=== PATIENT | male | born 1975 | race Caucasian/White ===

== ENCOUNTER 2020-05-10 13:36 | Inpatient (IN) ==
[2020-05-10] MEDS ORDERED: ONDANSETRON INJ 2 MG/ML 2 ML VIAL IV STA (14:16)
[2020-05-10] MEDS ORDERED: MoRPHine SULFATE 4 MG/ML 1 ML CARP\\VIAL IV STA (14:16)
--- NOTE | 2020-05-10 14:21 | Emergency Department Note ---
History of Present Illness General Chief complaint: Abdominal Pain Stated complaint: ABD PAIN SINCE LAST NIGHT Time Seen by Provider: 05/10/20 14:03 History of Present Illness Maximum Pain Intensity: 8 This is a 45-year-old male that presents to the emergency department via private vehicle with complaint of pain since last night". The patient notes that around 10 PM he began with bad cramping in the right lower quadrant region. He notes that he was eventually able to fall asleep and awoke today with persistence of symptoms. He denies any relief. He tried Motrin without relief. He denies any known trauma, injury, fevers, nausea, vomiting or blood in the stool. He does have associated chills. He denies any pertinent past medical history, surgeries or allergies. No history of abdominal surgeries. Current discomfort 11/23. 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 Beliefs That Will Affect Care: None Current Living Situation: Spouse and Family Other Information That Helps Us Care for You: No Feels Safe at Home: Yes Safety Concerns: Feels Safe At This Time Assistive Devices: Glasses Assistive Devices Comment: glasses not here Review of Systems A total of 10 systems reviewed and were otherwise negative Physical Exam Vital Signs Vital Signs - 24 hr 05/10/20 13:56 05/10/20 14:16 05/10/20 14:18 Temperature 37.2 C Temperature Source Oral Pulse Rate 114 H 103 H 101 H Pulse Rate [Right Finger] Pulse Rate from SpO2 Sensor Respiratory Rate 18 18 22 Respiratory Effort / Characteristics Respiratory Depth Respiratory Pattern Blood Pressure 159/87 H 146/99 H Blood Pressure [Left Arm] Blood Pressure Mean 111 114 Blood Pressure Mean [Left Arm] Blood Pressure Position [Left Arm] Pulse Oximetry 95 Oxygen Delivery Method Room Air Sepsis Recent Fever Within 48 Hours No Sepsis New/Unexplained Change in Mental Status No Sepsis Action Taken by Nursing No Action Required 05/10/20 14:30 05/10/20 14:31 05/10/20 15:00 Temperature Temperature Source Pulse Rate 95 H 94 H 96 H Pulse Rate [Right Finger] Pulse Rate from SpO2 Sensor Respiratory Rate 18 21 22 Respiratory Effort / Characteristics Respiratory Depth Respiratory Pattern Blood Pressure 125/86 Blood Pressure [Left Arm] Blood Pressure Mean 99 Blood Pressure Mean [Left Arm] Blood Pressure Position [Left Arm] Pulse Oximetry Oxygen Delivery Method Sepsis Recent Fever Within 48 Hours Sepsis New/Unexplained Change in Mental Status Sepsis Action Taken by Nursing 05/10/20 15:19 05/10/20 15:20 05/10/20 15:30 Temperature Temperature Source Pulse Rate 96 H 97 H 91 H Pulse Rate [Right Finger] Pulse Rate from SpO2 Sensor 96 H 95 H 91 H Respiratory Rate 20 23 20 Respiratory Effort / Characteristics Respiratory Depth Respiratory Pattern Blood Pressure 133/86 130/86 Blood Pressure [Left Arm] Blood Pressure Mean 101 100 Blood Pressure Mean [Left Arm] Blood Pressure Position [Left Arm] Pulse Oximetry 99 98 95 Oxygen Delivery Method Sepsis Recent Fever Within 48 Hours Sepsis New/Unexplained Change in Mental Status Sepsis Action Taken by Nursing 05/10/20 15:31 05/10/20 16:00 05/10/20 16:01 Temperature Temperature Source Pulse Rate 93 H 98 H 96 H Pulse Rate [Right Finger] Pulse Rate from SpO2 Sensor 93 H 97 H 96 H Respiratory Rate 21 19 22 Respiratory Effort / Characteristics Respiratory Depth Respiratory Pattern Blood Pressure 129/84 Blood Pressure [Left Arm] Blood Pressure Mean 99 Blood Pressure Mean [Left Arm] Blood Pressure Position [Left Arm] Pulse Oximetry 96 94 94 Oxygen Delivery Method Sepsis Recent Fever Within 48 Hours Sepsis New/Unexplained Change in Mental Status Sepsis Action Taken by Nursing 05/10/20 16:30 05/10/20 16:31 05/10/20 17:00 Temperature Temperature Source Pulse Rate 97 H 95 H 95 H Pulse Rate [Right Finger] Pulse Rate from SpO2 Sensor 97 H 95 H Respiratory Rate 22 20 16 Respiratory Effort / Characteristics Respiratory Depth Respiratory Pattern Blood Pressure 134/90 120/77 Blood Pressure [Left Arm] Blood Pressure Mean 104 91 Blood Pressure Mean [Left Arm] Blood Pressure Position [Left Arm] Pulse Oximetry 95 95 Oxygen Delivery Method Sepsis Recent Fever Within 48 Hours Sepsis New/Unexplained Change in Mental Status Sepsis Action Taken by Nursing 05/10/20 17:01 05/10/20 17:20 Temperature 37.8 C H Temperature Source Oral Pulse Rate 89 Pulse Rate [Right Finger] 95 H Pulse Rate from SpO2 Sensor Respiratory Rate 21 95 H Respiratory Effort / Characteristics Non-Labored Spontaneous Respiratory Depth Normal Respiratory Pattern Regular Blood Pressure Blood Pressure [Left Arm] 116/82 Blood Pressure Mean Blood Pressure Mean [Left Arm] 93 Blood Pressure Position [Left Arm] Sitting Pulse Oximetry 92 Oxygen Delivery Method Room Air Sepsis Recent Fever Within 48 Hours Sepsis New/Unexplained Change in Mental Status Sepsis Action Taken by Nursing VITAL SIGNS - Vital signs and nursing notes were reviewed. Stable and afebrile. GENERAL -45-year-old male appearing his stated age who is in no acute distress. Communicates well with provider and answers questions appropriately. SKIN - Without rashes. No meningeal or petechial rash. HEAD - NC/AT. EYES - PERRL with EOMI bilaterally. Sclera anicteric. EARS - No deformities of external structures noted on gross examination bilaterally. NOSE - Midline and without cyanosis. No epistaxis or purulent drainage noted. MOUTH/OROPHARYNX - Without perioral cyanosis. Buccal mucosa pink and moist and without leukoplakia. Tongue midline with equal elevation of palate bilaterally. No tonsillar hypertrophy, erythema, or exudates noted. Good dentition noted. NECK - Neck with FROM. Supple to palpation. No lymphadenopathy noted. No nuchal rigidity. LUNGS - Chest wall symmetric without accessory muscle use, intercostals retractions, or central cyanosis. Normal vesicular breath sounds CTA B/L. No wh eezes, rales, or rhonchi appreciated. CARDIAC - RRR with S1/S2. No murmur, rubs, or gallops appreciated. ABDOMEN - Abdominal contour normal without pulsations or visible masses. BS normoactive all four quadrants. The patient's abdomen is tender in the right lower quadrant with some mild rebound tenderness. Abdomen is somewhat rigid. No palpable masses, hepatosplenomegaly, or ascites noted. EXTREMITIES - No clubbing or peripheral cyanosis. No pretibial edema present. +5/5 strength noted in UE/LE bilaterally. NEUROLOGIC - Cranial nerves II through XII grossly intact. Sensory intact to light touch throughout. PSYCH - A&O, and cooperates fully with examiner. Pt is very pleasant and interac ts well with examiner. Course Administered Medications Lactated Ringer's (Lr) 1,000 mls @ 80 mls/hr IV .[id number] FANNIE Stop: 06/09/20 21:31 Last Infusion: 05/11/20 04:44 Dose: 80 mls/hr Documented by: [id number] Infusion: 05/11/20 04:00 Dose: 0 mls/hr Documented by: [id number] Admin: 05/11/20 04:00 Dose: 80 mls/hr Documented by: [id number] Infusion: 05/11/20 04:00 Dose: 80 mls/hr Documented by: [id number] Infusion: 05/10/20 22:42 Dose: 80 mls/hr Documented by: [id number] Infusion: 05/10/20 22:10 Dose: 0 mls/hr Documented by: [id number] Admin: 05/10/20 21:30 Dose: 80 mls/hr Documented by: [id number] Piperacillin Sod/Tazobactam (Sod 3.375 gm/ Dextrose) 115 mls @ 28.75 mls/hr IV Q8H FANNIE; Protocol Stop: 05/21/20 02:59 Last Admin: 05/11/20 03:56 Dose: 28.8 mls/hr Documented by: [id number] Oxycodone/Acetaminophen (Oxycodone/Acetaminophen 5mg/325mg Tab) 1 tab PO Q4H PRN PRN Reason: Pain Stop: 05/24/20 21:31 Last Admin: 05/11/20 01:11 Dose: 1 tab Documented by: [id number] Discontinued Medications Bacitracin (Bacitracin Oint 15 Gm Tube) Confirm Administered Dose 45 appln .ROUTE .STK-MED ONE Stop: 05/10/20 17:25 Last Admin: 05/10/20 18:01 Dose: 45 appln Documented by: [id number] Bupivacaine HCl (Bupivacaine 0.5 % 5 Mg/1 Ml Mpf 30ml Vial) Confirm Administered Dose 30 ml .ROUTE .STK-MED ONE Stop: 05/10/20 17:25 Last Admin: 05/10/20 18:02 Dose: 20 ml Documented by: [id number] Sodium Chloride (Nss 1000ml) 1,000 mls @ 999 mls/hr IV .Q1H1M FANNIE Stop: 05/10/20 15:30 Last Infusion: 05/10/20 15:15 Dose: 0 mls/hr Documented by: [id number] Admin: 05/10/20 14:22 Dose: 999 mls/hr Documented by: [id number] Cefoxitin Sodium (Mefoxin) 2,000 mg in 60 mls @ 100 mls/hr IV NOW ONE Stop: 05/10/20 17:50 Last Infusion: 05/10/20 21:30 Dose: 0 mls/hr Documented by: [id number] Admin: 05/10/20 17:34 Dose: 100 mls/hr Documented by: [id number] Piperacillin Sod/Tazobactam (Sod 3.375 gm/ Dextrose) 115 mls @ 230 mls/hr IV NOW ONE; Protocol Stop: 05/10/20 22:44 Last Infusion: 05/10/20 22:41 Dose: 0 mls/hr Documented by: [id number] Admin: 05/10/20 22:09 Dose: 230 mls/hr Documented by: [id number] Ioversol (Ioversol 100ml) 91 ml IV ONCE ONE Stop: 05/10/20 15:11 Last Admin: 05/10/20 15:11 Dose: 91 ml Documented by: [id number] Lidocaine HCl (Lidocaine Hcl 1% 20 Ml Vial) Confirm Administered Dose 20 ml .ROUTE .STK-MED ONE Stop: 05/10/20 17:25 Last Admin: 05/10/20 18:02 Dose: 20 ml Documented by: [id number] Morphine Sulfate (Morphine Sulfate 4 Mg/Ml 1 Ml Carp\\Vial) 4 mg IV NOW STA Stop: 05/10/20 14:17 Last Admin: 05/10/20 14:22 Dose: 4 mg Documented by: [id number] Ondansetron HCl (Ondansetron Inj 2 Mg/Ml 2 Ml Vial) 4 mg IV NOW STA Stop: 05/10/20 14:17 Last Admin: 05/10/20 14:22 Dose: 4 mg Documented by: [id number] Medical Decision Making Laboratory Data Result diagrams: 05/11/20 04:35 05/11/20 04:35 Lab Results 05/10/20 05/10/20 05/10/20 Range/Units 14:12 14:12 14:15 WBC 17.01 H (4.8-10.8) K/uL RBC 5.29 (4.7-6.1) M/uL Hgb 15.9 (14.0-18.0) g/dL Hct 44.6 (42-52) % MCV 84.3 (80-100) fL MCH 30.1 (25-34) pg MCHC 35.7 (32-36) g/dL RDW Std Deviation 39.6 (36.4-46.3) fL RDW Coeff of Ashlee 12.9 (11.5-14.5) % Plt Count 291 (130-400) K/uL MPV 9.6 (7.4-10.4) fL Immature Gran % (Auto) 0.4 % Neut % (Auto) 78.5 % Lymph % (Auto) 14.6 % [place] % (Auto) 6.2 % Eos % (Auto) 0.2 % Baso % (Auto) 0.1 % Neut # (Auto) 13.35 H (1.4-6.5) K/uL Lymph # (Auto) 2.49 (1.2-3.4) K/uL [place] # (Auto) 1.06 H (0.11-0.59) K/uL Eos # (Auto) 0.03 (0-0.5) K/uL Baso # (Auto) 0.02 (0-0.2) K/uL Immature Gran # (Auto) 0.06 H (0.00-0.02) K/uL Sodium 136 (136-145) mmol/L Potassium 3.6 (3.5-5.1) mmol/L Chloride 102 (98-107) mmol/L Carbon Dioxide 29 (21-32) mmol/L Anion Gap 5.0 (3-11) BUN 13 (7-18) mg/dl Creatinine 1.04 (0.6-1.4) mg/dl Est Cr Clr Drug Dosing 115.0 ml/min Est GFR ( Amer) 99.3 Est GFR (Non-Af Amer) 85.7 BUN/Creatinine Ratio 12.2 (10-20) Glucose 97 (70-99) mg/dl Calcium 9.6 (8.5-10.1) mg/dl Total Bilirubin 1.7 H (0.2-1) mg/dl AST 11 L (15-37) U/L ALT 39 (12-78) U/L Alkaline Phosphatase 85 (45-117) U/L Total Protein 8.2 (6.4-8.2) gm/dl Albumin 3.9 (3.4-5.0) gm/dl Globulin 4.3 H (2.5-4.0) gm/dl Albumin/Globulin Ratio 0.9 (0.9-2) Lipase 84 (73-393) U/L Urine Color Yellow Urine Appearance Clear (Clear) Urine pH 6.5 (4.5-7.5) Ur Specific [place] 1.013 (1.000-1.030) Urine Protein Negative (Negative) Urine Glucose (UA) Negative (Negative) Urine Ketones Negative (Negative) Urine Blood Negative (Negative) Urine Nitrite Negative (Negative) Urine Bilirubin Negative (Negative) Urine Urobilinogen Negative (Negative) Ur Leukocyte Esterase Trace H (Negative) Urine WBC (Auto) 0 (0-5) /hpf Urine RBC (Auto) 0-4 (0-4) /hpf U Hyaline Cast (Auto) 1-5 (0-5) /lpf U Epithel Cells (Auto) 0-5 (0-5) /lpf Urine Bacteria (Auto) Negative (Negative) COVID-19 Eval Order SARS-CoV-2, RNA, NAAT (NEGATIVE) 05/10/20 05/10/20 Range/Units 16:26 16:26 WBC (4.8-10.8) K/uL RBC (4.7-6.1) M/uL Hgb (14.0-18.0) g/dL Hct (42-52) % MCV (80-100) fL MCH (25-34) pg MCHC (32-36) g/dL RDW Std Deviation (36.4-46.3) fL RDW Coeff of Ashlee (11.5-14.5) % Plt Count (130-400) K/uL MPV (7.4-10.4) fL Immature Gran % (Auto) % Neut % (Auto) % Lymph % (Auto) % [place] % (Auto) % Eos % (Auto) % Baso % (Auto) % Neut # (Auto) (1.4-6.5) K/uL Lymph # (Auto) (1.2-3.4) K/uL [place] # (Auto) (0.11-0.59) K/uL Eos # (Auto) (0-0.5) K/uL Baso # (Auto) (0-0.2) K/uL Immature Gran # (Auto) (0.00-0.02) K/uL Sodium (136-145) mmol/L Potassium (3.5-5.1) mmol/L Chloride (98-107) mmol/L Carbon Dioxide (21-32) mmol/L Anion Gap (3-11) BUN (7-18) mg/dl Creatinine (0.6-1.4) mg/dl Est Cr Clr Drug Dosing ml/min Est GFR ( Amer) Est GFR (Non-Af Amer) BUN/Creatinine Ratio (10-20) Glucose (70-99) mg/dl Calcium (8.5-10.1) mg/dl Total Bilirubin (0.2-1) mg/dl AST (15-37) U/L ALT (12-78) U/L Alkaline Phosphatase (45-117) U/L Total Protein (6.4-8.2) gm/dl Albumin (3.4-5.0) gm/dl Globulin (2.5-4.0) gm/dl Albumin/Globulin Ratio (0.9-2) Lipase (73-393) U/L Urine Color Urine Appearance (Clear) Urine pH (4.5-7.5) Ur Specific [place] (1.000-1.030) Urine Protein (Negative) Urine Glucose (UA) (Negative) Urine Ketones (Negative) Urine Blood (Negative) Urine Nitrite (Negative) Urine Bilirubin (Negative) Urine Urobilinogen (Negative) Ur Leukocyte Esterase (Negative) Urine WBC (Auto) (0-5) /hpf Urine RBC (Auto) (0-4) /hpf U Hyaline Cast (Auto) (0-5) /lpf U Epithel Cells (Auto) (0-5) /lpf Urine Bacteria (Auto) (Negative) COVID-19 Eval Order Covid19 IDNow [facility] SARS-CoV-2, RNA, NAAT NEGATIVE (NEGATIVE) Imaging Data Radiologist's Impression: CT OF THE ABDOMEN AND PELVIS WITH CONTRAST CLINICAL HISTORY: Right lower quadrant abdominal pain. COMPARISON STUDY: None. TECHNIQUE: Following IV administration of 91 mL of Optiray-320, axial images of the abdomen and pelvis were obtained from the lung bases to the proximal femurs. Images were reviewed in the axial, sagittal, and coronal planes. IV contrast was administered without complication. Automated exposure control was utilized for the study. A dose lowering technique was utilized adhering to the principles of ALARA. CT DOSE: 1105.59 mGy.cm FINDINGS: Note is made of a few small nodules within the lower lungs which measure up to 3 mm. These are likely benign. No pneumatosis, free air or portal venous gas is present. The liver, spleen, adrenal glands, kidneys and pancreas are normal. There is no biliary or pancreatic ductal dilatation. There is no evidence for a bowel obstruction. The base of the appendix is dilated, measuring 1.1 cm in caliber. The tip of the appendix is normal caliber. There is moderate infiltration centered on the base of the cecum and the appendix. There is mild wall thickening of the cecum and the terminal ileum. No free air or abscess is present. A few prominent ileocolic lymph nodes are likely reactive. Major vasculature is patent. IMPRESSION: Mild dilatation of the base of the appendix with infiltration adjacent to the appendix, cecum and terminal ileum with mild wall thickening of the terminal ileum and cecum. Acute appendicitis is the diagnosis of exclusion. A nonspecific ileocecitis could appear similar although is considered less likely. No free air or abscess. ACT 112: Negative or not required by law. Electronically signed by: Tio Cummings M.D. 05/10/2020 3:36 PM MDM Narrative Patient was seen and evaluated as above in room B3. Review was performed of nursing notes and vital signs. After obtaining a thorough history and physical examination the above work up was performed. Patient presents to us today with right lower quadrant abdominal pain since last night. His examination is concerning for that of potential surgical process. IV access established. Labs were drawn. He was medicated with IV morphine, fluids, Zofran. He is reevaluated with improvement. CT scan was obtained. Results as above. Acute appendicitis suggested and is my concern clinically. Case then discussed with general surgery. They came to evaluate the patient. He will be taken to the operative suite. Please refer to further documentation regarding his stay. While in the department, I personally reevaluated the patient and he was found to be resting comfortably. GCS: 15 In the evaluation and treatment of this patient the following differential diagnoses were entertained: Perforation, abscess, peritonitis, acute appendicitis, diverticulitis, torsion, renal calculi, among others. Impression & Plan Acute appendicitis, Acute abdominal pain in right lower quadrant Discharge Plan Visit Data Chief Complaint: Abdominal Pain Stated Complaint: ABD PAIN SINCE LAST NIGHT ED Provider: Yonny Agustin ED Midlevel Provider: Jacinto Cooley Discharge Problem: Acute appendicitis, Acute abdominal pain in right lower quadrant Patient Disposition: Being Evaluated by Surgeon Discharge Instructions Interventions: ED Discharge Assessment Last Done: 05/10/20 17:14
[2020-05-10 14:28] LABS: Basophils # (auto) 0.02 K/uL (0-0.2); Basophils % (auto) 0.1 %; Eosinophils # (auto) 0.03 K/uL (0-0.5); Eosinophils % (auto) 0.2 %; Hematocrit (blood only) 44.6 % (42-52); Hemoglobin 15.9 g/dL (14.0-18.0); Immature Granulocytes # (auto) 0.06 K/uL (0.00-0.02); Immature Granulocytes % (auto) 0.4 %; Lymphocytes # (auto) 2.49 K/uL (1.2-3.4); Lymphocytes % (auto) 14.6 %; Mean Corpuscular Hemoglobin 30.1 pg (25-34); Mean Corpuscular Hgb Conc 35.7 g/dL (32-36); Mean Corpuscular Volume 84.3 fL (80-100); Mean Platelet Volume 9.6 fL (7.4-10.4); Monocytes # (auto) 1.06 K/uL (0.11-0.59); Monocytes % (auto) 6.2 %; Neutrophils # (auto) 13.35 K/uL (1.4-6.5); Neutrophils % (auto) 78.5 %; Platelet Count 291 K/uL (130-400); RDW Coefficient of Variation 12.9 % (11.5-14.5); RDW Standard Deviation 39.6 fL (36.4-46.3); Red Blood Count 5.29 M/uL (4.7-6.1); White Blood Count 17.01 K/uL (4.8-10.8)
[2020-05-10] MEDS ORDERED: SODIUM CHLORIDE 0.9% 1000ML 1,000 ML IV SCH (14:30)
[2020-05-10 14:51] LABS: Albumin Level 3.9 gm/dl (3.4-5.0); BUN Creatinine Ratio 12.2 (10-20); Calcium 9.6 mg/dl (8.5-10.1); Est GFR (African American) 99.3; Est GFR (Non-African American) 85.7; Potassium 3.6 mmol/L (3.5-5.1)
[2020-05-10 14:54] LABS: Albumin Globulin Ratio 0.9 (0.9-2); Bilirubin,Total 1.7 mg/dl (0.2-1); Globulin 4.3 gm/dl (2.5-4.0); Total Protein 8.2 gm/dl (6.4-8.2)
[2020-05-10 14:54] LABS: Appearance Urine Clear (Clear); Bacteria Urine Automated Negative (Negative); Bilirubin Urine Negative (Negative); Blood Urine Negative (Negative); Color Urine Yellow; Epithelial Cell Urine Auto 0-5 /lpf (0-5); Glucose Urine UA Negative (Negative); Ketones Urine Negative (Negative); Leukocyte Esterase Urine Trace (Negative); Nitrite Urine Negative (Negative); Protein Urine Negative (Negative); RBC Urine Automated 0-4 /hpf (0-4); Specific Gravity Urine 1.013 (1.000-1.030); Urobilinogen Urine Negative (Negative); WBC Urine Automated 0 /hpf (0-5); pH Urine 6.5 (4.5-7.5)
[2020-05-10] MEDS ORDERED: IOVERSOL 100ml IV ONE (15:10)
--- NOTE | 2020-05-10 15:38 | CT Scan Report ---
CT OF THE ABDOMEN AND PELVIS WITH CONTRAST CLINICAL HISTORY: Right lower quadrant abdominal pain. COMPARISON STUDY: None. TECHNIQUE: Following IV administration of 91 mL of Optiray-320, axial images of the abdomen and pelvi s were obtained from the lung bases to the proximal femurs. Images were reviewed in the axial, sagitt al, and coronal planes. IV contrast was administered without complication. Automated exposure contro l was utilized for the study. A dose lowering technique was utilized adhering to the principles of A SNOW. CT DOSE: 1105.59 mGy.cm FINDINGS: Note is made of a few small nodules within the lower lungs which measure up to 3 mm. These are likely benign. No pneumatosis, free air or portal venous gas is present. The liver, spleen, adren al glands, kidneys and pancreas are normal. There is no biliary or pancreatic ductal dilatation. Ther e is no evidence for a bowel obstruction. The base of the appendix is dilated, measuring 1.1 cm in ca liber. The tip of the appendix is normal caliber. There is moderate infiltration centered on the base of the cecum and the appendix. There is mild wall thickening of the cecum and the terminal ileum. No free air or abscess is present. A few prominent ileocolic lymph nodes are likely reactive. Major vas culature is patent. IMPRESSION: Mild dilatation of the base of the appendix with infiltration adjacent to the appendix, cecum and terminal ileum with mild wall thickening of the terminal ileum and cecum. Acute appendiciti s is the diagnosis of exclusion. A nonspecific ileocecitis could appear similar although is considere d less likely. No free air or abscess. ACT 112: Negative or not required by law. Electronically signed by: Tio Cummings M.D. 05/10/2020 3:36 PM
--- NOTE | 2020-05-10 16:50 | Surgery Consultation ---
Date of Consultation May 10, 2020 Assessment & Plan (1) Acute abdominal pain in right lower quadrant: (2) Acute appendicitis: pt is a 45 year-old male who presents to ER with one day history RLQ pain, IMP: acute abdominal pain,acute appendicitis, could not R/O ileitis Plan, I recommend to do laparoscopic appendectomy, possible open, D/W benefits, risks and alternatives of the surgery, the risks - infection, bleeding, abscess, injury bowel, pt understood, he agrees with the surgery, I answered all questions, COVID test, pre-op antibiotic Present on Admission?: Yes History of Present Illness History of Present Illness CC: RLQ pain HPI: pt is a 45 year-old male who presents to ER with one day history RLQ pain with nausea, no vomiting, the pain is 6/10, located at RLQ, pt denies fever, no diarrhea, no past abdominal pain history, pt had CT scan today- diagnosis- acute appendicitis, I got a call for consult acute appendicitis. Allergies Allergy/AdvReac Type Severity Reaction Status Date / Time No Known Allergies Allergy Unverified 05/10/20 16:48 Patient History Social History Smoking Status: Never smoker Review of Systems Review of Systems: All systems reviewed & are unremarkable except as noted in HPI & below Constitutional: as per Subjective / HPI Eyes: as per Subjective / HPI Ear, Nose, Mouth, Throat: as per Subjective / HPI Respiratory: as per Subjective / HPI Cardiovascular: as per Subjective / HPI Gastrointestinal: as per Subjective / HPI Genitourinary: + as per Subjective / HPI Musculoskeletal: as per Subjective / HPI Integumentary: as per Subjective / HPI Neurologic: as per Subjective / HPI Psychiatric: as per Subjective / HPI Endocrine: as per Subjective / HPI Hematologic / Lymphatic: as per Subjective / HPI Allergy / Immunological: as per Subjective / HPI Physical Exam Constitutional: WD/WN, vitals as above well developed and well nourished Eyes: PERRL, conjunctivae normal, anicteric sclerae ENMT: external ear and nose normal, oropharynx normal Neck: trachea midline, no thyromegaly Respiratory: normal respiratory effort, lungs clear to auscultation Cardiovascular: RRR, no murmur, no edema Rate/Rhythm: regular rate and regular rhythm Gastrointestinal (Abdomen): Percussion/Palpation: + abdomen tender and abdomen soft tenderness at RLQ, no rebound pain, no distend, BS + Musculoskeletal: no cyanosis or clubbing, extremities motor strength 5/5 Skin: no rashes, warm and dry Neurologic: awake Psychiatric: Orientation: alert and oriented x 3 Results & Data ([facility]) Vital Signs (Past 12 Hours) Vital Signs Temp Pulse Resp BP Pulse Ox 05/10/20 16:31 95 H 20 95 05/10/20 16:30 97 H 22 134/90 95 05/10/20 16:01 96 H 22 94 05/10/20 16:00 98 H 19 129/84 94 05/10/20 15:31 93 H 21 96 05/10/20 15:30 91 H 20 130/86 95 05/10/20 15:20 97 H 23 98 05/10/20 15:19 96 H 20 133/86 99 05/10/20 15:00 96 H 22 05/10/20 14:31 94 H 21 05/10/20 14:30 95 H 18 125/86 05/10/20 14:18 101 H 05/10/20 14:16 103 H 18 146/99 H 05/10/20 13:56 37.2 C 114 H 18 159/87 H 95 Laboratory Results Abnormal lab results 05/10/20 05/10/20 05/10/20 Range/Units 14:12 14:12 14:15 WBC 17.01 H (4.8-10.8) K/uL Neut # (Auto) 13.35 H (1.4-6.5) K/uL [place] # (Auto) 1.06 H (0.11-0.59) K/uL Immature Gran # (Auto) 0.06 H (0.00-0.02) K/uL Total Bilirubin 1.7 H (0.2-1) mg/dl AST 11 L (15-37) U/L Globulin 4.3 H (2.5-4.0) gm/dl Ur Leukocyte Esterase Trace H (Negative) Diagnostic Findings CT OF THE ABDOMEN AND PELVIS WITH CONTRAST CLINICAL HISTORY: Right lower quadrant abdominal pain. COMPARISON STUDY: None. TECHNIQUE: Following IV administration of 91 mL of Optiray-320, axial images of the abdomen and pelvis were obtained from the lung bases to the proximal femurs. Images were reviewed in the axial, sagittal, and coronal planes. IV contrast was administered without complication. Automated exposure control was utilized for the study. A dose lowering technique was utilized adhering to the principles of ALARA. CT DOSE: 1105.59 mGy.cm FINDINGS: Note is made of a few small nodules within the lower lungs which measure up to 3 mm. These are likely benign. No pneumatosis, free air or portal venous gas is present. The liver, spleen, adrenal glands, kidneys and pancreas are normal. There is no biliary or pancreatic ductal dilatation. There is no evidence for a bowel obstruction. The base of the appendix is dilated, measuring 1.1 cm in caliber. The tip of the appendix is normal caliber. There is moderate infiltration centered on the base of the cecum and the appendix. There is mild wall thickening of the cecum and the terminal ileum. No free air or abscess is present. A few prominent ileocolic lymph nodes are likely reactive. Major vasculature is patent. IMPRESSION: Mild dilatation of the base of the appendix with infiltration adjacent to the appendix, cecum and terminal ileum with mild wall thickening of the terminal ileum and cecum. Acute appendicitis is the diagnosis of exclusion. A nonspecific ileocecitis could appear similar although is considered less likely. No free air or abscess.
--- NOTE | 2020-05-10 16:56 | History & Physical Bridge Note ---
Date of Service May 10, 2020 History & Physical Bridge Note I have examined the patient, reviewed the History & Physical and in the interval since the performance of the History & Physical I have noted the following changes of clinical significance: no changes noted
[2020-05-10] MEDS ORDERED: ONDANSETRON INJ 2 MG/ML 2 ML VIAL ONE (17:00)
[2020-05-10] MEDS ORDERED: DEXAMETHASONE SOD INJ 4 MG/ML VIAL ONE (17:00)
[2020-05-10] MEDS ORDERED: PROPOFOL IV EMULSION 10 MG/ML 20 ML VIAL IV ONE (17:00)
[2020-05-10] MEDS ORDERED: fentaNYL citrate 100 MCG/2 ML VIAL ONE ×2 (17:00→18:22)
[2020-05-10] MEDS ORDERED: LIDOCAINE HCL 2% 2 ML VIAL/AMP(20MG/ML) INFIL ONE (17:00)
[2020-05-10] MEDS ORDERED: MIDAZOLAM HCL 1 MG/ML 2ML VIAL ONE (17:00)
[2020-05-10] MEDS ORDERED: ROCURONIUM BROMIDE 10 MG/ML 5 ML VIAL IV ONE ×2 (17:00→18:20)
[2020-05-10] MEDS ORDERED: cefOXitin 2,000 MG/60 ML BAG IV ONE (17:15)
[2020-05-10] MEDS ORDERED: BUPIVACAINE 0.5 % 5 MG/1 ML MPF 30ML VIAL ONE (17:24)
[2020-05-10] MEDS ORDERED: HYDROmorphone INJ 2 MG/ML SYR/VIAL IV PRN (17:24)
[2020-05-10] MEDS ORDERED: ONDANSETRON INJ 2 MG/ML 2 ML VIAL IV PRN (17:24)
[2020-05-10] MEDS ORDERED: ePHEDrine sulfate 50 MG/ML AMP IV PRN (17:24)
[2020-05-10] MEDS ORDERED: ATROPINE SULFATE 0.1 MG/ML 10ML SYR IV PRN (17:24)
[2020-05-10] MEDS ORDERED: BACITRACIN OINT 15 GM TUBE ONE (17:24)
[2020-05-10] MEDS ORDERED: LIDOCAINE HCL 1% 20 ML VIAL ONE (17:24)
[2020-05-10] MEDS ORDERED: fentaNYL citrate 100 MCG/2 ML VIAL IV PRN (17:24)
[2020-05-10] MEDS ORDERED: PROMETHAZINE HCL 12.5 MG in SODIUM CHLORIDE 0.9% 50 ML IV PRN (17:24)
--- NOTE | 2020-05-10 17:24 | Anesthesiology Consultation ---
Date of Service May 10, 2020 Assessment & Plan ASA ASA1 Proposed Anesthesia Anesthesia Type: General Risk / Benefits Reviewed With: PT / POA / Parent / Guardian, Accepts Plan and Informed Consent Obtained History Surgery Operation Date: 05/10/20 07:50 Proposed Procedures p Laparoscopic Appendectomy - Jaun Noriega MD Height/Weight Height: 6 ft Weight: 112.6 kg Allergies Allergy/AdvReac Type Severity Reaction Status Date / Time No Known Allergies Allergy Unverified 05/10/20 16:48 NPO Date Last Intake of Fluids: 05/10/20 Time Last Intake of Fluids: 10:00 Date Last Intake of Solids: 05/10/20 Time Last Intake of Solids: 00:00 Exercise / Class Metabolic Activity 1 > 8 Run/Swim/Ski/Tennis Past Anesthesia History No Hx of Anesthesia Complications and No Family Hx of Anesthesia Complications History of PONV No Hx of PONV and No Hx of Motion Sickness Social History Smoking Status: Never smoker Hx Alcohol Use: Yes Alcohol type: beer Review of Systems denies fever/cough/ colds/ chest pain/ SOB/ CHAUNCEY denies CHAUNCEY Physical Exam Vital Signs Last Vital Signs Temp 37.2 C 05/10/20 13:56 Pulse 89 05/10/20 17:01 Resp 21 05/10/20 17:01 BP 120/77 05/10/20 17:00 Pulse Ox 95 05/10/20 16:31 ENMT Mouth: no TMJ abnormality and no dentition abnormality Thyromental Distance: > or= 3.5 Finger Breadths Mallampati Class: II Neck neck extension not limited Respiratory normal respiratory effort; no respiratory distress Auscultation: lungs clear to auscultation bilaterally Cardiovascular Rate/Rhythm: regular rate and regular rhythm Neurologic moves all extremities Psychiatric Orientation: alert and oriented x 3 Testing Laboratory Results 05/10/20 14:12 05/10/20 14:12 Urine Color Yellow 05/10/20 14:15 Urine Appearance Clear (Clear) 05/10/20 14:15 Urine pH 6.5 (4.5-7.5) 05/10/20 14:15 Ur Specific Adams 1.013 (1.000-1.030) 05/10/20 14:15 Urine Protein Negative (Negative) 05/10/20 14:15 Urine Glucose (UA) Negative (Negative) 05/10/20 14:15 Urine Ketones Negative (Negative) 05/10/20 14:15 Urine Nitrite Negative (Negative) 05/10/20 14:15 Ur Leukocyte Esterase Trace (Negative) H 05/10/20 14:15 Urine WBC (Auto) 0 /hpf (0-5) 05/10/20 14:15 Urine RBC (Auto) 0-4 /hpf (0-4) 05/10/20 14:15 U Hyaline Cast (Auto) 1-5 /lpf (0-5) 05/10/20 14:15 U Epithel Cells (Auto) 0-5 /lpf (0-5) 05/10/20 14:15 Urine Bacteria (Auto) Negative (Negative) 05/10/20 14:15
[2020-05-10] MEDS ORDERED: HYDROmorphone INJ 2 MG/ML SYR/VIAL ONE (18:23)
--- NOTE | 2020-05-10 19:55 | Post Operative Brief Note ---
Immediate Post Op Note v1 Date of Surgery May 10, 2020 Pre & Post Diagnosis Operation Date: 05/10/20 07:50 Pre-Op Diagnosis: Abdominal Pain, Acute Appendicitis Post-Op Diagnosis: Abdominal Pain, Acute Appendicitis I identified the patient and participated in the time-out.: Yes Procedure Operation Date: 05/10/20 07:50 Actual Procedures, laparoscopic converse to Open Appendectomy(Not Applicable) - Jaun Noriega MD Surgeon Jaun Noriega MD Teen Counselor facility technician Estimated Blood Loss 20 Findings Consistent with Post-Op Diagnosis acute appendicitis, with perforation and small abscess Fluids 1700ml Specimens appendix Drains Other (10 mm FLORENCIO) Anesthesia Type General Complications none Disposition Accompanied Patient To Recovery: Yes Disposition: Recovery Room Overlapping Procedure I was immediately available: during the entire case.
--- NOTE | 2020-05-10 21:17 | Anesthesiology Progress Note ---
Date of Service May 10, 2020 Anesthesia Post Procedure Vital Signs Vital Signs: Temp Pulse Pulse Pulse Resp BP BP 05/10/20 21:00 95 H 16 117/80 05/10/20 20:45 96 H 20 131/80 05/10/20 20:35 105 H 18 145/91 H 05/10/20 20:25 93 H 20 143/86 H 05/10/20 20:15 103 H 23 143/86 H 05/10/20 20:09 37.6 C H 103 H 16 158/87 H 05/10/20 17:20 37.8 C H 95 H 95 H 116/82 05/10/20 17:01 89 21 05/10/20 17:00 95 H 16 120/77 05/10/20 16:31 95 H 20 05/10/20 16:30 97 H 22 134/90 05/10/20 16:01 96 H 22 05/10/20 16:00 98 H 19 129/84 05/10/20 15:31 93 H 21 05/10/20 15:30 91 H 20 130/86 05/10/20 15:20 97 H 23 05/10/20 15:19 96 H 20 133/86 05/10/20 15:00 96 H 22 05/10/20 14:31 94 H 21 05/10/20 14:30 95 H 18 125/86 05/10/20 14:18 101 H 22 05/10/20 14:16 103 H 18 146/99 H 05/10/20 13:56 37.2 C 114 H 18 159/87 H Pulse Ox 05/10/20 21:00 92 05/10/20 20:45 92 05/10/20 20:35 92 05/10/20 20:25 92 05/10/20 20:15 97 05/10/20 20:09 96 05/10/20 17:20 92 05/10/20 17:01 05/10/20 17:00 05/10/20 16:31 95 05/10/20 16:30 95 05/10/20 16:01 94 05/10/20 16:00 94 05/10/20 15:31 96 05/10/20 15:30 95 05/10/20 15:20 98 05/10/20 15:19 99 05/10/20 15:00 05/10/20 14:31 05/10/20 14:30 05/10/20 14:18 05/10/20 14:16 05/10/20 13:56 95 Pain Intensity Right Lower Abdomen: Pain Intensity: 8 Transfer of Care Handoff Completed per policy Notes Mental Status: alert / awake / arousable and participated in evaluation Patient Amnestic to Procedure: Yes Nausea / Vomiting: adequately controlled Pain: adequately controlled Airway Patency, RR, SpO2: stable & adequate BP & HR: stable & adequate Hydration State: stable & adequate Anesthetic Complications: no major complications apparent and Pt Satisfied with anesthetic care
[2020-05-10] MEDS: LACTATED RINGER'S 1,000 ML IV SCH (21:30)
[2020-05-10] MEDS ORDERED: HYDROmorphone INJ 1 MG/ML SYRINGE IV PRN (21:32)
[2020-05-10] MEDS ORDERED: PIPERACILL/TAZOBAC CONSULT ACTIVE PRN (21:32)
[2020-05-10] MEDS ORDERED: PIPERACILLIN/TAZOBACTAM 3.375 GM in DEXTROSE 5% 100 ML IV ONE (22:15)
[2020-05-11] MEDS: oxyCODONE/ACETAMINOPHEN 5mg/325mg TAB PO PRN ×4 (01:11→23:20)
--- NOTE | 2020-05-11 03:49 | Operative Report (OR) ---
DATE OF OPERATION: 05/10/2020 PREOPERATIVE DIAGNOSIS: Acute appendicitis. POSTOPERATIVE DIAGNOSIS: Acute appendicitis with perforation with abscess. OPERATION: Laparoscopy converted to open appendectomy. SURGEON: Jaun Noriega MD ANESTHESIA: General. ESTIMATED BLOOD LOSS: About 20 mL. FINDINGS: Acute appendicitis with perforation, with abscess. COMPLICATIONS: None. INDICATIONS FOR THE PROCEDURE: This is a 45-year-old gentleman who presented to ED with 1-day history of acute right lower quadrant pain. The patient had a CT scan diagnosis of acute appendicitis and I recommended to do a laparoscopic appendectomy, possible open. I did talk to the patient about the benefit, the risk, alternate procedure. I indicated the risks may include but not limited such as bleeding, infection, abscess, sepsis, injury to the bowel, incisional hernia, myocardial infarction, even . The patient understands. He signed informed consent and I answered all questions. DETAILS OF PROCEDURE: We brought the patient to the OR, put the patient in the supine position. The patient received SCDs on bilateral legs to prevent DVT. Also, patient received 2 gm cefoxitin IV for prophylactic antibiotic. The patient received general anesthesia without difficulty. The abdomen was prepped and draped in routine sterile fashion. After time-out, I injected local anesthesia by using 1% lidocaine mixed with 0.5% Marcaine just above the umbilicus. Then I made a small incision just above umbilicus, opened fascia and opened peritoneum under direct vision, put a Aaron trocar in, connected to CO2 to create pneumoperitoneum. Flow rate is 6 liter per minute. Pressure not more than 14 mmHg. Once we got a nice pneumoperitoneum, we put a camera in, looked around the abdomen, showed there are some free purulent flow in the pelvic area. At this moment, we could not see the appendix. Then, we put another two 5 mm trocars on the left lower quadrant where we mobilized the cecum and we found the patient had perforation on the base of appendix with small abscess, we suctioned the flow. Because it was difficult to dissect the whole appendix at this moment, so I decided to convert to open, then we removed all trocars, released the pneumoperitoneum. Then we made about a 4 cm incision on the right lower quadrant area and dissection the subcutaneous layer, reached the external oblique, opened the external oblique, the muscle, opened the posterior fascial layer and opened the peritoneum under direct vision and then it was very difficult to dissection the whole appendix. Then we found the patient has some microperforation on the base of the appendix and there was some pus around the base of the appendix. Once we suctioned out all the pus, we will be able to create a window on the base of the appendix. We used 45 mm Endo-ROSIE staple for transection on the base of the appendix, rechecked the staple line intact and then we used the Bovie to take down the appendiceal. We used 0 Vicryl to ligate the appendix blood circulation. The blood vessel rechecked, no active bleeding and based on the patient has perforation and once we suctioned all the flow on the pelvic area, no more flow on the pelvic area. At this moment, we decided to put the 10 mm FLORENCIO drainage on the pelvic area and the right lower quadrant where again, no active bleeding. Then we closed the posterior fascial layer using 2-0 Vicryl continuous running, closed the external fascial layer by using PDS #1 continuous running, closed subcutaneous layer by using 2-0 Vicryl continuous running, closed skin by using staple and then we also closed the umbilical incision, fascial layer by using 0 Vicryl [id number] x2, closed subcutaneous layer by using 2-0 Vicryl interruptedly, closed skin by using staple, closed another 5 mm trocar site of skin only by using staple. The FLORENCIO drainage come out through the one 5 mm trocar site. Then we used 2-0 nylon to fix the FLORENCIO drainage on the skin. Then, we put the dressing on. The patient tolerated the procedure well. All instrument, needle and sponge count were correct x2 at the end of the case and the patient transferred to recovery room in stable condition. Specimen sent to pathology. After the procedure, I did talk to the patient about the OR finding and the procedure we did, he understands. I attest to the content of the Intraoperative Record and any orders documented therein. Any exceptions are noted below. ADDI
[2020-05-11] MEDS: PIPERACILLIN/TAZOBACTAM 3.375 GM in DEXTROSE 5% 100 ML IV SCH ×3 (03:56→20:04)
[2020-05-11] MEDS: LACTATED RINGER'S 1,000 ML IV SCH ×2 (04:00→15:58)
[2020-05-11 05:34] LABS: Basophils # (auto) 0.01 K/uL (0-0.2); Basophils % (auto) 0.1 %; Hematocrit (blood only) 39.1 % (42-52); Hemoglobin 13.6 g/dL (14.0-18.0); Immature Granulocytes # (auto) 0.03 K/uL (0.00-0.02); Immature Granulocytes % (auto) 0.2 %; Lymphocytes # (auto) 0.91 K/uL (1.2-3.4); Lymphocytes % (auto) 6.3 %; Mean Corpuscular Hemoglobin 29.4 pg (25-34); Mean Corpuscular Hgb Conc 34.8 g/dL (32-36); Mean Corpuscular Volume 84.4 fL (80-100); Mean Platelet Volume 9.9 fL (7.4-10.4); Monocytes % (auto) 3.4 %; Neutrophils # (auto) 13.05 K/uL (1.4-6.5); Platelet Count 259 K/uL (130-400); RDW Coefficient of Variation 12.8 % (11.5-14.5); RDW Standard Deviation 39.1 fL (36.4-46.3); Red Blood Count 4.63 M/uL (4.7-6.1)
[2020-05-11 06:08] LABS: Albumin Level 3.1 gm/dl (3.4-5.0); BUN Creatinine Ratio 13.9 (10-20); Calcium 8.7 mg/dl (8.5-10.1); Creatinine Clr Calc Pharmacy 135.9 ml/min; Est GFR (African American) 119.4
[2020-05-11 06:14] LABS: Albumin Globulin Ratio 0.8 (0.9-2); Bilirubin,Total 1.2 mg/dl (0.2-1); Globulin 3.9 gm/dl (2.5-4.0)
[2020-05-11] MEDS ORDERED: ONDANSETRON INJ 2 MG/ML 2 ML VIAL IV PRN (08:17)
--- NOTE | 2020-05-11 08:42 | Surgery Progress Note ---
Date of Service May 11, 2020 Assessment & Plan (1) Acute appendicitis: POD # 1 s/p laparoscopic converted to open appendectomy - afebrile, vss - leukocytosis improved to14.5K (17k preop) - postop pain controlled - jericho drain with serosanguineous output Plan: Continue pain management as needed IV Zosyn for a few days Continue jericho drain to bulb suction continue ambulation full liquids today repeat am labs Dr. Noriega has seen patient, agrees with above. Admission and Anticipated Discharge Date Admission Date: May 10, 2020 Subjective feeling okay pain at surgical site tolerating clear liquids, no nausea or vomiting ambulated muro for 20 minutes Physical Exam Constitutional: WD/WN, vitals as above Respiratory: normal respiratory effort Gastrointestinal (Abdomen): Inspection/Auscultation: abdomen normal to inspec tion, + abdominal surgical incision (Covered with dry dressing, intact, clean) and + abdominal surgical drain present (serosanguineous) Percussion/Palpation: + abdomen tender (at incision site, no guarding, rigidity) and abdomen soft Skin: no rashes, warm and dry Psychiatric: A+Ox3, euthymic affect Results & Data ([facility]) Vital Signs (Past 12 Hours) Vital Signs Temp Pulse Pulse Resp BP Pulse Ox 05/11/20 07:42 36.9 C 82 16 122/72 91 05/11/20 04:03 36.8 C 82 15 109/71 91 05/11/20 00:39 36.8 C 108 H 16 121/79 94 05/10/20 23:33 36.8 C 90 15 120/77 94 05/10/20 22:30 36.7 C 91 H 18 116/77 92 05/10/20 22:05 36.9 C 97 H 18 128/80 92 05/10/20 21:30 37.2 C 94 H 20 125/80 92 05/10/20 21:15 37.2 C 97 H 20 115/80 92 05/10/20 21:00 95 H 16 117/80 92 05/10/20 20:45 96 H 20 131/80 92 Laboratory Results 05/11/20 05/11/20 05/10/20 Range/Units 04:35 04:35 16:26 WBC 14.50 H (4.8-10.8) K/uL RBC 4.63 L (4.7-6.1) M/uL Hgb 13.6 L (14.0-18.0) g/dL Hct 39.1 L (42-52) % MCV 84.4 (80-100) fL MCH 29.4 (25-34) pg MCHC 34.8 (32-36) g/dL RDW Std Deviation 39.1 (36.4-46.3) fL RDW Coeff of Ashlee 12.8 (11.5-14.5) % Plt Count 259 (130-400) K/uL MPV 9.9 (7.4-10.4) fL Immature Gran % (Auto) 0.2 % Neut % (Auto) 90.0 % Lymph % (Auto) 6.3 % Brown % (Auto) 3.4 % Eos % (Auto) 0.0 % Baso % (Auto) 0.1 % Neut # (Auto) 13.05 H (1.4-6.5) K/uL Lymph # (Auto) 0.91 L (1.2-3.4) K/uL Brown # (Auto) 0.50 (0.11-0.59) K/uL Eos # (Auto) 0.00 (0-0.5) K/uL Baso # (Auto) 0.01 (0-0.2) K/uL Immature Gran # (Auto) 0.03 H (0.00-0.02) K/uL Sodium 136 (136-145) mmol/L Potassium 4.0 (3.5-5.1) mmol/L Chloride 105 (98-107) mmol/L Carbon Dioxide 25 (21-32) mmol/L Anion Gap 6.0 (3-11) BUN 12 (7-18) mg/dl Creatinine 0.88 (0.6-1.4) mg/dl Est Cr Clr Drug Dosing 135.9 ml/min Est GFR ( Amer) 119.4 Est GFR (Non-Af Amer) 103.0 BUN/Creatinine Ratio 13.9 (10-20) Glucose 149 H (70-99) mg/dl Calcium 8.7 (8.5-10.1) mg/dl Total Bilirubin 1.2 H (0.2-1) mg/dl AST 10 L (15-37) U/L ALT 27 (12-78) U/L Alkaline Phosphatase 73 (45-117) U/L Total Protein 7.0 (6.4-8.2) gm/dl Albumin 3.1 L (3.4-5.0) gm/dl Globulin 3.9 (2.5-4.0) gm/dl Albumin/Globulin Ratio 0.8 L (0.9-2) Lipase (73-393) U/L Urine Color Urine Appearance (Clear) Urine pH (4.5-7.5) Ur Specific Choudrant (1.000-1.030) Urine Protein (Negative) Urine Glucose (UA) (Negative) Urine Ketones (Negative) Urine Blood (Negative) Urine Nitrite (Negative) Urine Bilirubin (Negative) Urine Urobilinogen (Negative) Ur Leukocyte Esterase (Negative) Urine WBC (Auto) (0-5) /hpf Urine RBC (Auto) (0-4) /hpf U Hyaline Cast (Auto) (0-5) /lpf U Epithel Cells (Auto) (0-5) /lpf Urine Bacteria (Auto) (Negative) COVID-19 Eval Order SARS-CoV-2, RNA, NAAT NEGATIVE (NEGATIVE) 05/10/20 05/10/20 05/10/20 Range/Units 16:26 14:15 14:12 WBC (4.8-10.8) K/uL RBC (4.7-6.1) M/uL Hgb (14.0-18.0) g/dL Hct (42-52) % MCV (80-100) fL MCH (25-34) pg MCHC (32-36) g/dL RDW Std Deviation (36.4-46.3) fL RDW Coeff of Ashlee (11.5-14.5) % Plt Count (130-400) K/uL MPV (7.4-10.4) fL Immature Gran % (Auto) % Neut % (Auto) % Lymph % (Auto) % Brown % (Auto) % Eos % (Auto) % Baso % (Auto) % Neut # (Auto) (1.4-6.5) K/uL Lymph # (Auto) (1.2-3.4) K/uL Brown # (Auto) (0.11-0.59) K/uL Eos # (Auto) (0-0.5) K/uL Baso # (Auto) (0-0.2) K/uL Immature Gran # (Auto) (0.00-0.02) K/uL Sodium 136 (136-145) mmol/L Potassium 3.6 (3.5-5.1) mmol/L Chloride 102 (98-107) mmol/L Carbon Dioxide 29 (21-32) mmol/L Anion Gap 5.0 (3-11) BUN 13 (7-18) mg/dl Creatinine 1.04 (0.6-1.4) mg/dl Est Cr Clr Drug Dosing 115.0 ml/min Est GFR ( Amer) 99.3 Est GFR (Non-Af Amer) 85.7 BUN/Creatinine Ratio 12.2 (10-20) Glucose 97 (70-99) mg/dl Calcium 9.6 (8.5-10.1) mg/dl Total Bilirubin 1.7 H (0.2-1) mg/dl AST 11 L (15-37) U/L ALT 39 (12-78) U/L Alkaline Phosphatase 85 (45-117) U/L Total Protein 8.2 (6.4-8.2) gm/dl Albumin 3.9 (3.4-5.0) gm/dl Globulin 4.3 H (2.5-4.0) gm/dl Albumin/Globulin Ratio 0.9 (0.9-2) Lipase 84 (73-393) U/L Urine Color Yellow Urine Appearance Clear (Clear) Urine pH 6.5 (4.5-7.5) Ur Specific [place] 1.013 (1.000-1.030) Urine Protein Negative (Negative) Urine Glucose (UA) Negative (Negative) Urine Ketones Negative (Negative) Urine Blood Negative (Negative) Urine Nitrite Negative (Negative) Urine Bilirubin Negative (Negative) Urine Urobilinogen Negative (Negative) Ur Leukocyte Esterase Trace H (Negative) Urine WBC (Auto) 0 (0-5) /hpf Urine RBC (Auto) 0-4 (0-4) /hpf U Hyaline Cast (Auto) 1-5 (0-5) /lpf U Epithel Cells (Auto) 0-5 (0-5) /lpf Urine Bacteria (Auto) Negative (Negative) COVID-19 [facility] SARS-[facility]-2, RNA, NAAT (NEGATIVE) 05/10/20 Range/Units 14:12 WBC 17.01 H (4.8-10.8) K/uL RBC 5.29 (4.7-6.1) M/uL Hgb 15.9 (14.0-18.0) g/dL Hct 44.6 (42-52) % MCV 84.3 (80-100) fL MCH 30.1 (25-34) pg MCHC 35.7 (32-36) g/dL RDW Std Deviation 39.6 (36.4-46.3) fL RDW Coeff of Ashlee 12.9 (11.5-14.5) % Plt Count 291 (130-400) K/uL MPV 9.6 (7.4-10.4) fL Immature Gran % (Auto) 0.4 % Neut % (Auto) 78.5 % Lymph % (Auto) 14.6 % Brown % (Auto) 6.2 % Eos % (Auto) 0.2 % Baso % (Auto) 0.1 % Neut # (Auto) 13.35 H (1.4-6.5) K/uL Lymph # (Auto) 2.49 (1.2-3.4) K/uL Brown # (Auto) 1.06 H (0.11-0.59) K/uL Eos # (Auto) 0.03 (0-0.5) K/uL Baso # (Auto) 0.02 (0-0.2) K/uL Immature Gran # (Auto) 0.06 H (0.00-0.02) K/uL Sodium (136-145) mmol/L Potassium (3.5-5.1) mmol/L Chloride (98-107) mmol/L Carbon Dioxide (21-32) mmol/L Anion Gap (3-11) BUN (7-18) mg/dl Creatinine (0.6-1.4) mg/dl Est Cr Clr Drug Dosing ml/min Est GFR ( Amer) Est GFR (Non-Af Amer) BUN/Creatinine Ratio (10-20) Glucose (70-99) mg/dl Calcium (8.5-10.1) mg/dl Total Bilirubin (0.2-1) mg/dl AST (15-37) U/L ALT (12-78) U/L Alkaline Phosphatase (45-117) U/L Total Protein (6.4-8.2) gm/dl Albumin (3.4-5.0) gm/dl Globulin (2.5-4.0) gm/dl Albumin/Globulin Ratio (0.9-2) Lipase (73-393) U/L Urine Color Urine Appearance (Clear) Urine pH (4.5-7.5) Ur Specific [place] (1.000-1.030) Urine Protein (Negative) Urine Glucose (UA) (Negative) Urine Ketones (Negative) Urine Blood (Negative) Urine Nitrite (Negative) Urine Bilirubin (Negative) Urine Urobilinogen (Negative) Ur Leukocyte Esterase (Negative) Urine WBC (Auto) (0-5) /hpf Urine RBC (Auto) (0-4) /hpf U Hyaline Cast (Auto) (0-5) /lpf U Epithel Cells (Auto) (0-5) /lpf Urine Bacteria (Auto) (Negative) COVID-19 Eval Order SARS-CoV-2, RNA, NAAT (NEGATIVE)
[2020-05-11] MEDS ORDERED: ACETAMINOPHEN 325 MG TAB PO PRN (09:24)
[2020-05-11 23:11] VITALS: O2SAT 92
[2020-05-12] MEDS: LACTATED RINGER'S 1,000 ML IV SCH (03:20)
[2020-05-12] MEDS: PIPERACILLIN/TAZOBACTAM 3.375 GM in DEXTROSE 5% 100 ML IV SCH ×2 (03:22→10:49)
[2020-05-12 07:15] LABS: Basophils # (auto) 0.02 K/uL (0-0.2); Basophils % (auto) 0.2 %; Eosinophils # (auto) 0.08 K/uL (0-0.5); Eosinophils % (auto) 0.7 %; Hematocrit (blood only) 36.1 % (42-52); Hemoglobin 12.3 g/dL (14.0-18.0); Immature Granulocytes # (auto) 0.02 K/uL (0.00-0.02); Immature Granulocytes % (auto) 0.2 %; Lymphocytes # (auto) 1.91 K/uL (1.2-3.4); Lymphocytes % (auto) 17.1 %; Mean Corpuscular Hemoglobin 29.1 pg (25-34); Mean Corpuscular Hgb Conc 34.1 g/dL (32-36); Mean Corpuscular Volume 85.5 fL (80-100); Mean Platelet Volume 9.4 fL (7.4-10.4); Monocytes # (auto) 0.87 K/uL (0.11-0.59); Monocytes % (auto) 7.8 %; Neutrophils # (auto) 8.29 K/uL (1.4-6.5); Platelet Count 254 K/uL (130-400); RDW Coefficient of Variation 13.1 % (11.5-14.5); RDW Standard Deviation 41.4 fL (36.4-46.3); Red Blood Count 4.22 M/uL (4.7-6.1); White Blood Count 11.19 K/uL (4.8-10.8)
[2020-05-12 07:18] VITALS: BP 124/80; PULSE 89; TEMP 99.3
[2020-05-12 07:46] LABS: BUN Creatinine Ratio 12.4 (10-20); Calcium 8.5 mg/dl (8.5-10.1); Creatinine Clr Calc Pharmacy 119.6 ml/min; Est GFR (African American) 104.1; Est GFR (Non-African American) 89.9; Potassium 3.6 mmol/L (3.5-5.1)
[2020-05-12] MEDS: oxyCODONE/ACETAMINOPHEN 5mg/325mg TAB PO PRN (09:21)
--- NOTE | 2020-05-12 09:39 | Surgery Progress Note ---
Date of Service May 12, 2020 Assessment & Plan (1) Acute appendicitis: POD # 2 s/p laparoscopic converted to open appendectomy - afebrile, vss - leukocytosis improved to11.19k (14k yesterday) - postop pain controlled - jericho drain with serosanguineous output - bloated today, passing gas Plan: Continue pain management as needed Continue IV Zosyn (has only had 24 hours) Continue jericho drain to bulb suction continue ambulation continue full liquids today given bloating Decrease IV fluids to 50 cc/hr Colace BID Patient seen with Dr. Noriega at 12:30 pm: Feeling good, still passing gas pain controlled ambulating would like to be discharged. staying in hot now as he lives in [place]. [facility] and then go home tomorrow WIll send rx for Percocet prn pain and 5 days of PO cipro/flagyl to [facility] will have office call him to set up telemedicine postop visit in 1-2 weeks discontinue jericho drain prior to discharge will need floresita removed at PCP office in 3 weeks Admission and Anticipated Discharge Date Admission Date: May 10, 2020 Subjective feeling better today in regards to pain feeling bloated and low appetite today but no nausea or vomiting passing gas no bowel movement ambulating hallway, using incentive no chest pain, shortness of breath, dizziness Physical Exam Constitutional: WD/WN, vitals as above Respiratory: normal respiratory effort; no respiratory distress and no labored breathing Gastrointestinal (Abdomen): Inspection/Auscultation: + abdomen distended, + abdominal surgical incision (Covered with dry dressing, clean, intact) and + abdominal surgical drain present (serosanguineous); + abnormal bowel sounds Skin: no rashes, warm and dry Psychiatric: A+Ox3, euthymic affect Results & Data ([facility]) Vital Signs (Past 12 Hours) Vital Signs Temp Pulse Resp BP Pulse Ox 05/12/20 07:17 37.4 C 89 18 124/80 92 05/11/20 23:10 36.9 C 86 16 104/67 92 Laboratory Results 05/12/20 05/12/20 Range/Units 07:01 07:01 WBC 11.19 H (4.8-10.8) K/uL RBC 4.22 L (4.7-6.1) M/uL Hgb 12.3 L (14.0-18.0) g/dL Hct 36.1 L (42-52) % MCV 85.5 (80-100) fL MCH 29.1 (25-34) pg MCHC 34.1 (32-36) g/dL RDW Std Deviation 41.4 (36.4-46.3) fL RDW Coeff of Ashlee 13.1 (11.5-14.5) % Plt Count 254 (130-400) K/uL MPV 9.4 (7.4-10.4) fL Immature Gran % (Auto) 0.2 % Neut % (Auto) 74.0 % Lymph % (Auto) 17.1 % Mckenzie % (Auto) 7.8 % Eos % (Auto) 0.7 % Baso % (Auto) 0.2 % Neut # (Auto) 8.29 H (1.4-6.5) K/uL Lymph # (Auto) 1.91 (1.2-3.4) K/uL Mckenzie # (Auto) 0.87 H (0.11-0.59) K/uL Eos # (Auto) 0.08 (0-0.5) K/uL Baso # (Auto) 0.02 (0-0.2) K/uL Immature Gran # (Auto) 0.02 (0.00-0.02) K/uL Sodium 139 (136-145) mmol/L Potassium 3.6 (3.5-5.1) mmol/L Chloride 106 (98-107) mmol/L Carbon Dioxide 32 (21-32) mmol/L Anion Gap 1.0 L (3-11) BUN 12 (7-18) mg/dl Creatinine 1.00 (0.6-1.4) mg/dl Est Cr Clr Drug Dosing 119.6 ml/min Est GFR ( Amer) 104.1 Est GFR (Non-Af Amer) 89.9 BUN/Creatinine Ratio 12.4 (10-20) Glucose 100 H (70-99) mg/dl Calcium 8.5 (8.5-10.1) mg/dl
[2020-05-12] MEDS ORDERED: DOCUSATE SODIUM 100 MG CAP PO SCH (10:00)
--- NOTE | 2020-05-13 09:03 | Discharge Summary ---
Date of Service May 13, 2020 Admission HPI Per Admitting Provider pt is a 45 year-old male who presents to ER with one day history RLQ pain with nausea, no vomiting, the pain is 6/10, located at RLQ, pt denies fever, no diarrhea, no past abdominal pain history, pt had CT scan today- diagnosis- acute appendicitis, I got a call for consult acute appendicitis. Principal Diagnosis Acute perforated appendicitis with abscess Discharge Data Allergies Allergy/AdvReac Type Severity Reaction Status Date / Time No Known Allergies Allergy Unverified 05/10/20 16:48 Procedures Performed Operation Date: 05/10/20 07:50 Actual Procedures p Open Appendectomy(Not Applicable) - Jaun Noriega MD Ordered Studies 05/10/20 14:16 CT abd pelvis IV con only Stat Hospital Course (1) Acute appendicitis: Patient was taken to operating room from emergency department for laparoscopic appendectomy possible open by Dr. Noriega. Patient was found to have perforated appendicitis with abscess and procedure was converted to open appendectomy. Patient tolerated procedure well without any difficulties. Was transferred to recovery room and then to medical/surgical floor for postop care. IV zosyn, IV fluids, IV Dilaudid and PO Percocet prn pain, IV Zofran prn nausea, activity as tolerated, clear liquids, and [place] drain to bulb suction were postop orders. POD # 1, avss, leukocytosis improved to 14k from 17k preoperatively. Pain controlled. Ambulating hallway and using incentive. Tolerated clear liquids. Passing gas. Diet advanced to full liquids and IV Antibiotics continued. POD # 2 avss, leukocytosis improved to 11k. slightly bloated but still passing gas and tolerating fulls but low appetite no nausea or vomiting. Encouraged to continue ambulation. Patient seen in afternoon on POD # 2 and feeling well. Patient was discharged home with 5 day course of oral Cipro/Flagyl and pain medication prn. Drain was removed prior to discharge. Will set up telemedicine postop visit [place]. Will need PCP to remove floresita in 3 weeks. Discharge instructions reviewed and provided. Total Time Total Time Spent Total Time Spent (In Minutes): 30 Total Time Includes: Examination of the Patient, Discharge Planning and Medication Reconciliation Discharge Plan Discharge Items Patient Disposition: Home - Self-Care Reason For Visit: VOMITING, LOWER ABD. PAIN Discharge Diagnosis: Acute perforated appendicitis Activity: Per Instructions section Non-emergency contact: Primary Care Provider and Surgeon Call non-emergency contact if: your pain is not controlled, your pain is worsening, your pain is concerning for you, you have a fever, your temperature is above 101, your wound has increased redness, your wound has increased drainage and your wound pain has increased Follow-up/Referrals: Jaun Noriega MD [Physician] - 05/27/20 11:30 am (Telephone visit) PCP,NO [Primary Care Provider] - Diet: Regular Diet Comment: advance diet to regular diet slowly as tolerated Addtl Attending Provider Instructions: General Surgery discharge instructions: - No heavy lifting over 20 pounds for 4-6 weeks - No strenuous activity for at least 4 weeks - No submerging incision underwater for 2 weeks (no bathing, swimming, or hot tubs) - No driving while taking narcotic pain medication or until you are pain free - You may shower. Allow soap and water to run over incision and pat dry. - Replace a small dressing over incision daily or as needed to keep clean and dry - [place] will need removed in about 3 weeks at your primary care doctors office. - May take extra strength Tylenol or Ibuprofen as needed for mild pain. Can alternate the two medications 650 mg of Tylenol every 6 hours as needed 600 mg of Ibuprofen every 6 hours as needed (take with food) - Percocet as needed for moderate to severe pain. Take as directed - Recommend taking stool softener (over the counter Colace) at least daily while taking narcotic pain medication to prevent constipation or straining - You will be given two antibiotics for 5 day course, take as directed - Our office will contact you to set up a telemedicine visit with Dr. Noriega in 1-2 weeks. If you do not hear from office, please call to set up a postop telemedicine(phone call/video visit) [phone]. Appendix pathology will be reviewed at that time. Pending Studies at Discharge: Yes Stand-Alone Forms: My [employer], Opioid Pain Management, Work/School Release (Inpt), Smoking Cessation Medications and DC Order Prescriptions: New oxycodone-acetaminophen [Percocet] 5-325 mg tablet 1 tab PO Q4H PRN (Reason: pain) Qty: 18 RF: 0 ciprofloxacin HCl [Cipro] 500 mg tablet 500 mg PO BID Qty: 10 RF: 0 metronidazole [Flagyl] 500 mg tablet 500 mg PO TID Qty: 15 RF: 0 Discharge Orders: Discharge Order (Routine); Ordered 05/12/20 Ordered By: Beverly Lazo/Other Patient Handouts: Discharge Instructions for Open ... Admission Data Admit Date/Time: 05/10/20 20:03 Attending Provider: Jaun Noriega Admit Provider: Jaun Noriega Primary Care Provider: PCP,NO Other Interventions: Discharge Summary Assessment (RN) Last Done: 05/12/20 13:44
== END 2020-05-12 15:06 | disposition home or self-care (01) | DRG 340 ==
LOC: ED 13:36 → OR 17:18 → 3N 17:18